=== PATIENT | female | born 1995 ===

== ENCOUNTER 2025-01-08 05:49 | Inpatient (IN) | payer OTHER ==
[2025-01-08] VITALS (10 sets, daily range): BP systolic 93–139; BP diastolic 55–71
[~2025-01-08] VITALS: Ht 167.6 cm; Wt 93.4 kg
[2025-01-08] MEDS ORDERED: RINGERS SOLUTION,LACTATED 1,000 ML IV SCH (06:00)
[2025-01-08] MEDS ORDERED: PRENATAL TABLE1 EAC4 PO (06:05)
[2025-01-08 06:55] LABS: HEMATOCRIT 38.4 % (36.0-45.00); HEMOGLOBIN 13.2 g/dL (12.0-15.00); MEAN CELL VOLUME 85.7 fL (80.00-100.00); MEAN CORPUSCULAR HEMOGLOBIN 29.5 pg (27.00-32.0); MEAN CORPUSCULAR HGB CONC 34.4 g/dl (32.0-36.0); PLATELET COUNT 197 K/uL (150-450); RED BLOOD COUNT 4.48 M/uL (4.00-6.00)
[2025-01-08 07:13] LABS: PH,URINE 6.5 (5.0-8.0); URINE APPEARANCE Clear; URINE BILIRRUBIN Negative (NEGATIVE); URINE BLOOD Negative; URINE COLOR Yellow; URINE GLUCOSE Negative (NEGATIVE); URINE KETONE Negative (NEGATIVE); URINE LEUKOCYTE Negative; URINE NITRATE Negative; URINE PROTEIN Negative (NEGATIVE)
[2025-01-08 07:16] LABS: URINE BACTERIA 369.5 uL (0.0-1933); URINE EPITHELIAL CELLS 11.6 uL (0.0-38.8); URINE RBC 2.7 uL (0.0-20.8); URINE WBC 10.4 uL (0.0-23.2)
[2025-01-08 07:20] LABS: INR < 0.93; PROTHROMBIN TIME 9.8 SECONDS (9.0-11.5)
[2025-01-08 08:22] LABS: ALBUMIN 2.8 gm/dL (3.4-5.0); BILIRUBIN TOTAL 0.3 mg/dL (0.3-1.2); CALCIUM 8.6 mg/dL (8.5-10.1); CREATININE SERUM 0.41 mg/dL (0.55-1.02); GFR 184.72; GLOBULINA 3.5 G/DL (2.4-3.5); POTASSIUM 4.03 mEq/L (3.5-5.1); TOTAL PROTEIN 6.3 gm/dL (6.4-8.2)
[2025-01-08] MEDS ORDERED: MISOPROSTOL 25 MCG/4 ML GEL.W.APPL ONE (08:45)
[2025-01-08] MEDS ORDERED: AMPICILLIN SODIUM 2,000 MG VIAL ONE (08:55)
[2025-01-08] MEDS ORDERED: AMPICILLIN SODIUM 2,000 MG VIAL IV ONE (09:45)
[2025-01-08] MEDS ORDERED: MISOPROSTOL 25 MCG/4 ML GEL.W.APPL VAG ONE (09:45)
[2025-01-08] MEDS ORDERED: OXYTOCIN 20 UNITS/500ML RL PIGGYBAG IV ONE (12:57)
[2025-01-08] MEDS ORDERED: AMPICILLIN SODIUM 1,000 MG VIAL IV SCH (13:00)
[2025-01-08] MEDS ORDERED: MORPHINE SULFATE 4 MG/ML CARTRIDGE IV ONE (13:15)
[2025-01-08] MEDS ORDERED: OXYTOCIN 500 ML IV SCH (13:30)
[2025-01-08] MEDS ORDERED: CHLORHEXIDINE GLUCONATE 120 ML BOTTLE TOP ONE ×2 (18:19→19:30)
[2025-01-08] MEDS ORDERED: OXYTOCIN 20 UNITS/1000ML RL PIGGYBAG IV ONE (18:19)
[2025-01-08] MEDS ORDERED: LIDOCAINE HCL 1% 10ML VIAL ONE (18:19)
[2025-01-08] MEDS ORDERED: ERYTHROMYCIN BASE OPHT 1GM EACH TUBE OP ONE (18:19)
[2025-01-08] MEDS ORDERED: OXYTOCIN 10 UNITS/ML VIAL ONE (18:46)
[2025-01-08] MEDS ORDERED: IBUprofen 400 MG TABLET PO PRN (19:15)
[2025-01-08] MEDS ORDERED: OXYTOCIN 1,000 ML IV SCH (19:30)
[2025-01-08] MEDS ORDERED: OXYTOCIN 10 UNITS/ML VIAL IM STA (19:30)
[2025-01-08] MEDS ORDERED: ERYTHROMYCIN BASE OPHT 1GM EACH TUBE OP SCH (20:15)
[2025-01-08] MEDS ORDERED: LIDOCAINE HCL 1% 10ML VIAL IJ ONE (20:15)
[2025-01-09] VITALS: BP 97/60
[2025-01-09 00:47] LABS: HEMATOCRIT 37.5 % (36.0-45.00); HEMOGLOBIN 12.4 g/dL (12.0-15.00); MEAN CELL VOLUME 86.9 fL (80.00-100.00); MEAN CORPUSCULAR HEMOGLOBIN 28.6 pg (27.00-32.0); PLATELET COUNT 208 K/uL (150-450); RED BLOOD COUNT 4.32 M/uL (4.00-6.00); RED CELL DISTRIBUTION WIDTH 13.8 % (11.5-14.5)
[2025-01-09 04:00] VITALS: BP 105/66
[2025-01-09 08:00] VITALS: BP 119/80
[2025-01-09] MEDS ORDERED: DOCUSATE SODIUM 100MG CAP PO SCH (09:00)
[2025-01-09 17:01] VITALS: BP 111/77
[2025-01-09 23:57] VITALS: BP 108/68
[2025-01-10 09:32] VITALS: BP 115/77
== END 2025-01-10 18:45 | disposition home or self-care (01) | DRG 807 ==
LOC: LDR 05:49 → OB/GYN 20:32
PROVIDERS: Obstetrics & Gynecology; ADMIT Obstetrics & Gynecology; ATTEND Obstetrics & Gynecology
PROC: 10E0XZZ Delivery of Products of Conception, External Approach (ICD-10-PCS; principal; 2025-01-08)
PROC: 0KQM0ZZ Repair Perineum Muscle, Open Approach (ICD-10-PCS; 2025-01-08)
PROC: 3E033VJ Introduction of Other Hormone into Peripheral Vein, Percutaneous Approach (ICD-10-PCS; 2025-01-08)
PROC: 3E0P7VZ Introduction of Hormone into Female Reproductive, Via Natural or Artificial Opening (ICD-10-PCS; 2025-01-08)
PROC: 4A1HXCZ Monitoring of Products of Conception, Cardiac Rate, External Approach (ICD-10-PCS; 2025-01-08)
DX: O70.1 Second degree perineal laceration during delivery (principal); Z37.0 Single live birth; Z3A.39 39 weeks gestation of pregnancy